=== PATIENT | female | born 1950 | race Caucasian/White ===

== ENCOUNTER 2023-07-17 14:46 | Outpatient (CLI) | payer MEDICARE, BC ==
[~2023-07-17 14:46] MED LIST: DULO-31 PO; EST1T PO; MULT-785 PO; THYROID
[2023-07-17] MEDS ORDERED: PARO10TA4 PO (15:39)
[2023-07-17 16:27] LABS: BASOPHILS % (AUTO) 0.6 % (0-1); EOSINOPHILS # (AUTO) 0.1 X10'3 (0-0.9); EOSINOPHILS % (AUTO) 1.6 % (0-6); LYMPHOCYTES # (AUTO) 1.8 X10'3 (1.1-4.8); LYMPHOCYTES % (AUTO) 27.8 % (21-51); MEAN CORPUSCULAR HEMOGLOBIN 30.6 PG (27.0-31.0); MEAN CORPUSCULAR VOLUME 92.7 FL (78-98); MEAN PLATELET VOLUME 8.6 FL (7.4-10.4); MONOCYTES # (AUTO) 0.4 X10'3 (0-0.9); MONOCYTES % (AUTO) 6.9 % (2-12); NEUTROPHILS # (AUTO) 4.1 X10'3 (1.8-7.7); NEUTROPHILS % (AUTO) 63.1 % (42-75); PRE OP HEMATOCRIT 40.3 % (35.0-45.0); PRE OP HEMOGLOBIN 13.3 g/dL (12.0-16.0); PRE OP PLATELET COUNT 274 X10'3 (140-440); PRE OP WHITE BLOOD COUNT 6.5 10'3 (4.8-10.8); RED BLOOD COUNT 4.35 X10'6 (4.20-5.60); RED CELL DISTRIBUTION WIDTH 12.8 % (11.5-14.5)
[2023-07-17 16:34] LABS: BILIRUBIN,URINE NEGATIVE (Neg); CLARITY,URINE CLEAR (Clear); COLOR,URINE YELLOW (Yellow); GLUCOSE, URINE NEGATIVE (Neg); KETONES,URINE NEGATIVE (Neg); LEUKOCYTE ESTERASE ,URINE NEGATIVE (Neg); NITRITES, URINE NEGATIVE (Neg); OCCULT BLOOD,URINE NEGATIVE (Neg); PH,URINE 5.5 (4.8-8.0); PROTEIN,URINE NEGATIVE (Neg); UROBILINOGEN,URINE 0.2 E.U/dL (0.2-1.0)
[2023-07-17 16:35] LABS: UA COLLECTION TYPE CLN CATCH MIDSTREAM
[2023-07-17 16:47] LABS: ALBUMIN 4.1 G/DL (3.4-5.0); ALBUMIN/GLOBULIN RATIO 1.1 (1.1-1.5); ALKALINE PHOSPHATASE 110 IU/L (46-116); BLOOD UREA NITROGEN 10 MG/DL (7-18); CALCIUM 9.6 MG/DL (8.5-10.1); CHLORIDE 106 MMOL/L (99-107); CREATININE 0.83 MG/DL (0.40-0.90); PRE OP ALT 48 U/L (30-65); PRE OP ANION GAP 6 (8-16); PRE OP AST 38 U/L (10-37); PRE OP BILIRUB, TOTAL 0.3 MG/DL (0.0-1.0); PRE OP GLUCOSE 105 MG/DL (70-104); PRE OP POTASSIUM 3.8 MMOL/L (3.4-5.1); PRE OP SODIUM 140 MMOL/L (135-145); TOTAL CARBON DIOXIDE 27.8 MMOL/L (24-32); TOTAL PROTEIN 7.9 G/DL (6.4-8.2); eGFR 68 ML/MIN
== END 2023-07-17 23:59 | disposition home or self-care (01) ==
LOC: LAB 14:46 → EDSTATUS 07-24 11:00
PROVIDERS: ATTEND Surgery
DX: Z01.818 Encounter for other preprocedural examination (principal); R22.32 Localized swelling, mass and lump, left upper limb
CPT/HCPCS: 36415; 80053; 81003; 85025; 93005

== ENCOUNTER 2023-11-06 07:47 | Day surgery (SDC) | payer MEDICARE, BC ==
[2023-10-31 16:23] LABS: BILIRUBIN,URINE NEGATIVE (Neg); CLARITY,URINE CLOUDY (Clear); COLOR,URINE YELLOW (Yellow); GLUCOSE, URINE NEGATIVE (Neg); KETONES,URINE TRACE mg/dl (Neg); LEUKOCYTE ESTERASE ,URINE NEGATIVE (Neg); NITRITES, URINE NEGATIVE (Neg); OCCULT BLOOD,URINE NEGATIVE (Neg); PROTEIN,URINE NEGATIVE (Neg)
[2023-10-31 16:25] LABS: BASOPHILS % (AUTO) 0.4 % (0-1); EOSINOPHILS # (AUTO) 0.1 X10'3 (0-0.9); EOSINOPHILS % (AUTO) 1.3 % (0-6); LYMPHOCYTES # (AUTO) 1.8 X10'3 (1.1-4.8); LYMPHOCYTES % (AUTO) 28.2 % (21-51); MEAN CORPUSCULAR HEMOGLOBIN 30.8 PG (27.0-31.0); MEAN CORPUSCULAR HGB CONC 33.7 g/dL (33.0-36.5); MEAN CORPUSCULAR VOLUME 91.6 FL (78-98); MEAN PLATELET VOLUME 8.4 FL (7.4-10.4); MONOCYTES # (AUTO) 0.5 X10'3 (0-0.9); MONOCYTES % (AUTO) 7.3 % (2-12); NEUTROPHILS # (AUTO) 4.1 X10'3 (1.8-7.7); NEUTROPHILS % (AUTO) 62.8 % (42-75); PRE OP HEMATOCRIT 41.2 % (35.0-45.0); PRE OP HEMOGLOBIN 13.9 g/dL (12.0-16.0); PRE OP PLATELET COUNT 294 X10'3 (140-440); PRE OP WHITE BLOOD COUNT 6.5 10'3 (4.8-10.8)
[2023-10-31 16:39] LABS: UA COLLECTION TYPE CLN CATCH MIDSTREAM
[2023-10-31 16:40] LABS: MUCUS STRANDS MANY /LPF (Neg); SQUAMOUS EPITHELIAL CELL,UR MANY /LPF (FEW)
[2023-10-31 16:41] LABS: BACTERIA,URINE FEW /HPF (Neg); RBC,URINE 0-2 /HPF (0-2); WBC,URINE 0-4 /HPF (0-4)
[2023-10-31 16:48] LABS: ALBUMIN 3.9 G/DL (3.4-5.0); ALBUMIN/GLOBULIN RATIO 1.1 (1.1-1.5); ALKALINE PHOSPHATASE 138 IU/L (46-116); BLOOD UREA NITROGEN 12 MG/DL (7-18); BUN/CREATININE RATIO 13.2 (10.0-20.0); CALCIUM 9.2 MG/DL (8.5-10.1); CHLORIDE 104 MMOL/L (99-107); CREATININE 0.91 MG/DL (0.40-0.90); PRE OP ALT 46 U/L (30-65); PRE OP ANION GAP 5 (8-16); PRE OP AST 32 U/L (10-37); PRE OP BILIRUB, TOTAL 0.3 MG/DL (0.0-1.0); PRE OP GLUCOSE 84 MG/DL (70-104); PRE OP POTASSIUM 3.9 MMOL/L (3.4-5.1); PRE OP SODIUM 138 MMOL/L (135-145); TOTAL CARBON DIOXIDE 28.8 MMOL/L (24-32); TOTAL PROTEIN 7.4 G/DL (6.4-8.2); eGFR 61 ML/MIN
[~2023-11-06] VITALS: Ht 162.6 cm; Wt 101.2 kg
[2023-11-06] MEDS: cefazolin 2gm/D5W 100mL 100 ML IV ONE (05:30)
[~2023-11-06 07:47] MED LIST changes: +ACIT25CA2 PO; -DULO-31 PO; -EST1T PO; +LEVO125T8 PO; -MULT-785 PO; +PARO10TA4 PO; -THYROID
[2023-11-06 08:15] VITALS: BP 113/84; PULSE 61; RESP 16; TEMP 97.9; O2SAT 98
[2023-11-06] MEDS: famotidine 20mg tablet PO ONE (09:00)
[2023-11-06] MEDS: ringers solution, lacted 1,000 ML IV SCH (09:00)
[2023-11-06] MEDS ORDERED: LIDOcaine 1% w/EPI 1:100,000 inj. MDV 50 ML VIAL ONE (10:35)
[2023-11-06] MEDS ORDERED: BUPIVAcaine 2.5mg/ml inj 50ml vial (contains preservative) ONE (10:36)
[2023-11-06] MEDS ORDERED: sevoflurane 250ml liquid IH ONE (11:37)
[2023-11-06] MEDS ORDERED: fentaNYL/PF 50MCG/1 ML 2ML syringe ONE (11:43)
[2023-11-06] MEDS ORDERED: midazolam 1 mg/ML 2ml injection ONE (11:45)
[2023-11-06] MEDS ORDERED: ondansetron/PF 4mg/2ml inj ONE (11:54)
[2023-11-06] MEDS ORDERED: propofol inj 20 ML IV ONE ×2 (11:54→12:07)
[2023-11-06] MEDS ORDERED: dexamethasone sod phosphate 4mg/ml inj. ONE (11:54)
[2023-11-06] MEDS ORDERED: LIDOcaine 2% (20mg/ml) 5ml vial ONE (11:54)
[2023-11-06] MEDS ORDERED: bacitracin 15gm ointment TP ONE (12:16)
[2023-11-06] MEDS: BUPIVAcaine/PF 2.5 mg/ml (0.25%) 30ml vial IJ ONE (12:19)
[2023-11-06] MEDS: bacitracin 15gm ointment TP ONE (12:20)
[2023-11-06 12:40] VITALS: BP 122/47; PULSE 81; RESP 16; O2SAT 100
[2023-11-06] MEDS ORDERED: proCHLORperazine 10 MG/2 ml inj IV PRN (12:45)
[2023-11-06] MEDS ORDERED: hydrALAZINE 20mg/ml inj. IV PRN (12:45)
[2023-11-06] MEDS ORDERED: meperidine/PF 25mg/ml syringe IV PRN (12:45)
[2023-11-06] MEDS ORDERED: ondansetron/PF 4mg/2ml inj IV PRN (12:45)
[2023-11-06] MEDS ORDERED: acetaminophen 1,000mg/100ml IV 100 ML IV ONE (12:45)
[2023-11-06] MEDS ORDERED: ringers solution, lacted 1,000 ML IV SCH (12:45)
[2023-11-06] MEDS ORDERED: morphine 4 MG/ML inj SYRINge IV PRN (12:45)
[2023-11-06] MEDS ORDERED: labetalol 20mg/4ml (5mg/ml) syringe IV PRN (12:45)
[2023-11-06] MEDS ORDERED: HYDROmorphone/PF 0.2 MG/ML SYRINGE IV PRN ×2 (12:45)
[2023-11-06] MEDS ORDERED: morphine 2 MG/ML inj. syringe IV PRN (12:45)
[2023-11-06 12:50] VITALS: BP 117/59; PULSE 59; RESP 15; O2SAT 100
[2023-11-06 13:00] VITALS: BP 121/62; PULSE 55; RESP 14; O2SAT 100
[2023-11-06 13:10] VITALS: BP 131/64; PULSE 63; RESP 15; O2SAT 97
[2023-11-06 13:20] VITALS: BP 136/67; PULSE 64; RESP 15; O2SAT 98
== END 2023-11-06 13:20 | disposition home or self-care (01) ==
LOC: PAS 07:47
PROVIDERS: ATTEND Surgery
DX: D17.22 Benign lipomatous neoplasm of skin and subcutaneous tissue of left arm (principal); D12.9 Benign neoplasm of anus and anal canal; E66.9 Obesity, unspecified; Z68.38 Body mass index [BMI] 38.0-38.9, adult; G47.33 Obstructive sleep apnea (adult) (pediatric); F32.A Depression, unspecified; Z91.041 Radiographic dye allergy status; Z79.899 Other long term (current) drug therapy; Z98.890 Other specified postprocedural states; Z85.51 Personal history of malignant neoplasm of bladder; Z90.49 Acquired absence of other specified parts of digestive tract; Z87.891 Personal history of nicotine dependence; Z80.0 Family history of malignant neoplasm of digestive organs
CPT/HCPCS: 25071; 36415; 46922; 80053; 81001; 82948; 85025; J0690; J1100; J2250; J2405; J2704; J3010; J3490; J7030; J7120; Z7506; Z7508; Z7512; 88304; 88305; A4215; A4618; A6449; A7000